=== PATIENT | male | born 1940 | race Caucasian/White ===

== ENCOUNTER 2023-06-15 13:37 | Emergency (ER) | payer MEDICARE, SELFPAY ==
[2023-06-15 13:52] VITALS: BP 135/72; PULSE 76; RESP 16; TEMP 36.9; O2SAT 98
--- NOTE | 2023-06-15 14:57 | ED.GENADULT ---
HPI - General Adult General Chief complaint: Wound/Laceration Stated complaint: Right arm tore skin off Source: patient Mode of arrival: ambulatory Limitations: no limitations History of Present Illness HPI narrative: Patient presents for evaluation of skin tears to the right forearm. 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 It fell and caused several skin tears to right forearm in the process. Reports some minor amount of pain in the affected area. Areas are covered in a bandage and bleeding is controlled. He is anticoagulated with xarelto. Last tetanus was 8 years ago. He is not diabetic. No additional complaints. Related Data Home Medications Medication Instructions Recorded Confirmed atorvastatin 40 mg tablet 40 mg PO DAILY 12/22/19 05/15/23 finasteride 5 mg tablet 5 mg PO DAILY 12/22/19 05/15/23 pantoprazole 40 mg tablet,delayed 40 mg PO QAM 12/22/19 05/15/23 release rivaroxaban 20 mg tablet (Xarelto) 20 mg PO DAILY 12/22/19 05/15/23 sertraline 100 mg tablet 100 mg PO DAILY 12/22/19 05/15/23 tamsulosin 0.4 mg capsule 0.4 mg PO DAILY 12/22/19 05/15/23 cholecalciferol (vitamin D3) 10 10 mcg PO DAILY 05/12/23 05/15/23 mcg (400 unit) capsule cholestyramine (with sugar) 4 gram ea PO 05/12/23 05/15/23 oral powder Allergies Allergy/AdvReac Type Severity Reaction Status Date / Time Penicillins Allergy Unknown Unknown Verified 05/12/23 09:25 Review of Systems Review of Systems: CONSTITUTIONAL: Denies fever, chills, or sweats. EYES: Denies visual changes, redness, or discharge. ENT: Denies rhinorrhea, congestion, sore throat, or otalgia. CARDIOVASCULAR: Denies chest pain, palpitations, or edema. RESPIRATORY: Denies cough or dyspnea. GASTROINTESTINAL: Denies abdominal pain, nausea, vomiting, or diarrhea. GENITOURINARY: Denies dysuria or hematuria. SKIN: Reports skin tears to the right MUSCULOSKELETAL: Denies back pain, joint pain, or myalgia. NEUROLOGIC: Denies headache, numbness, dizziness, or weakness. PSYCHIATRIC: Denies anxiety or depression. [facility] Past Medical History Medical History A-fib Depression History of TIA (transient ischemic attack) Hyperlipidemia Hypertension Mild acid reflux Rotator cuff arthropathy of left shoulder Rotator cuff tear, left Surgical History Surgical History History of appendectomy (~2010) History of back surgery (~1967) History of back surgery (~1972) History of cholecystectomy (~2009) History of elbow surgery (~2004) History of foot surgery (~2019) History of hemorrhoidectomy (~1989) History of knee replacement (~2017) History of left knee surgery (~1984) History of prostate surgery (~2004) History of right knee surgery (~1990) History of rotator cuff surgery (~1999) History of sinus surgery (~1995) History of sinus surgery (~2000) History of thumb surgery (~2018) S/P left rotator cuff repair (~2005) Status post biventricular cardiac pacemaker insertion (~11/2014) Family History Family History Other Family history of arthritis Social History Social History Smoking status: Never smoker Alcohol intake: current Exam Narrative: GENERAL: Well-appearing, well-nourished, and in no acute distress. HEAD: Normocephalic, atraumatic. EYES: PERRLA and EOMI. ENT: Nares clear, no rhinorrhea or epistaxis. Mucous membranes moist. Oropharynx without tonsillar hypertrophy exudate or other lesions. Bilateral TMs pearly valdez nonbulging NECK: Supple. No adenopathy or masses. No carotid bruits or JVD CHEST: Clear to auscultation. No respiratory distress. No wheezes rales or rhonchi HEART: Regular rate and rhythm. No murmur heard. Normal peripheral pulses. ABDOMEN: Soft, nontender, nondiste
[2023-06-15] MEDS: TETANUS,DIPHTHERIA,AC PERTUSSIS ADULT (0.5 ML) BOOSTRIX IM (15:03)
== END 2023-06-15 15:17 | disposition home or self-care (01) ==
PROVIDERS: Emergency Provider Nurse Practitioner; PCP Internal Medicine
DX: S51.811A Laceration without foreign body of right forearm, initial encounter (principal); I48.91 Unspecified atrial fibrillation; E78.5 Hyperlipidemia, unspecified; I10 Essential (primary) hypertension; Z23 Encounter for immunization; Z86.73 Personal history of transient ischemic attack (TIA), and cerebral infarction without residual deficits; W31.2XXA Contact with powered woodworking and forming machines, initial encounter
CPT/HCPCS: 90471; 90715; 99213; G0463

== ENCOUNTER 2024-03-19 10:59 | Outpatient (CLI) | payer MEDICARE, SELFPAY ==
--- NOTE | ~2024-03-19 | XR_ITS ---
Right Knee Technique: AP, lateral, and sunrise views were obtained. Clinical History: Pain Findings: No fracture or dislocation is seen. There is mild degenerative change of the medial compart ment, medial joint line spurring and probable mild medial compartment narrowing. There is minimal spu rring, notch and patella, and lateral joint line.. Soft tissues are unremarkable. No joint effusion i s seen. Impression: Degenerative changes, as above, worst in the medial compartment. Reviewed, dictated and finalized at location M. Impression: Degenerative changes, as above, worst in the medial compartment.
== END 2024-03-19 11:00 | disposition home or self-care (01) ==
LOC: ANHIMG 11:00
PROVIDERS: PCP Internal Medicine; Visit Provider Orthopaedic Surgery
DX: M25.561 Pain in right knee (principal)
CPT/HCPCS: 73564

== ENCOUNTER 2024-03-30 11:28 | Outpatient (CLI) | payer MEDICARE, SELFPAY ==
--- NOTE | 2024-03-30 11:50 | ECG_ITS ---
Test Date: 2024-03-30 11:56:45 Measurements Intervals [place] Rate: 78 P: 0 OK: 0 QRS: 93 QRSD: 142 T: -17 QT: 387 QTc: 443 Interpretive Statements ATRIAL FIBRILLATION WITH INTERMITTENT VENTRICULAR PACED COMPLEXES RIGHT BUNDLE BRANCH BLOCK [120+ ms QRS DURATION, UPRIGHT V1, 40+ ms S IN I/aVL/V4/V5/V6] No previous ECG available for comparison Electronically Signed On 03-30-2024 13:41:18 CDT by Guerline Hooker M.D.
[2024-03-30 12:58] LABS: Hematocrit 41.6 % (42.0-52.0); Hemoglobin 13.4 g/dL (14.0-18.0)
[2024-03-30 13:15] LABS: Albumin Level 4.4 g/dL (3.5-5.1); Estimated Glomerular Filt Rate > 60; Glucose 100 mg/dL (65-110)
[2024-03-30 13:38] LABS: Urine Cotinine NEGATIVE
== END 2024-03-30 11:29 | disposition home or self-care (01) ==
LOC: ANHCARD 11:37
PROVIDERS: PCP Internal Medicine; Visit Provider Orthopaedic Surgery
DX: Z01.818 Encounter for other preprocedural examination (principal); M17.11 Unilateral primary osteoarthritis, right knee; E78.5 Hyperlipidemia, unspecified; I10 Essential (primary) hypertension; Z79.899 Other long term (current) drug therapy
CPT/HCPCS: 80307; 82040; 82565; 82947; 85014; 85018; 93005

== ENCOUNTER 2024-05-03 09:28 | Outpatient (CLI) | payer MEDICARE, SELFPAY ==
[2024-05-03 11:09] LABS: Basophils Percent Auto 0.6 % (0.2-1.2); Eosinophils Absolute Auto 0.1 K/mm3 (0-0.3); Eosinophils Percent Auto 1.7 % (0-4.4); Hematocrit 37.3 % (42.0-52.0); Immature Granulocyte Absolute 0.01 K/mm3 (0.00-0.031); Immature Granulocyte Percent A 0.2 % (0-0.5); Lymphocytes Absolute Auto 1.96 K/mm3 (0.9-3.2); Lymphocytes Percent Auto 29.9 % (18.3-44.2); Mean Corpuscular HGB Conc 32.2 g/dl (32-36); Mean Corpuscular Hemoglobin 27.8 pg (26-34); Mean Corpuscular Volume 86.3 fl (80-100); Mean Platelet Volume 9.7 fl (7.4-10.4); Monocytes Absolute Auto 0.5 K/mm3 (0.1-0.6); Monocytes Percent Auto 7.6 % (2.6-8.5); Neutrophils Absolute Auto 3.9 K/mm3 (1.3-6.7); Platelet Count Result 178 k/mm3 (150-375); Red Blood Count 4.32 M/mm3 (4.6-6.20); Red Cell Distribution Width 13.8 % (11.5-14.5); White Blood Count 6.6 K/mm3 (4.5-10.0)
[2024-05-03 11:58] LABS: Hemoglobin A1C 6.1 % (<5.7)
[2024-05-03 12:24] LABS: MRSA (PCR) NOT DETECTED (NOT DETECTE)
== END 2024-05-03 09:29 | disposition home or self-care (01) ==
PROVIDERS: PCP Hospitalist; Visit Provider Orthopaedic Surgery
DX: Z01.818 Encounter for other preprocedural examination (principal); M17.11 Unilateral primary osteoarthritis, right knee
CPT/HCPCS: 36415; 83036; 85025; 87641

== ENCOUNTER 2024-05-31 00:21 | Day surgery (SDC) | payer MEDICARE, SELFPAY ==
--- NOTE | 2024-05-03 09:41 | PC.NURSE ---
Report to the Outpatient Waiting Room, entrance under the green pavilion located off [facility], at time _10:00am on date ___05/31/24 ____. Planned Procedure Time: _12:00pm . Time changes happen often and if your time is changed the preop area will call you the afternoon before. - You and your visitor will be asked to self-screen and do not enter if you have any COVID symptoms. - A mask is optional within the hospital at this time. Patients may have clear liquids (water, carbonated beverages, clear teas, apple juice) until 3 hours prior to surgery (0900am) with a maximum of 20 ounces. - No food from midnight until time of surgery - Infants may have breast milk until 4 hours before surgery, infant formula 6 hours prior to surgery. Take the following medications with a SIP of water the morning of surgery: Sertraline per Anesthesia DO NOT STOP ANY OF YOUR OTHER PRESCRIPTION MEDICATIONS PRIOR TO SURGERY ?EXCEPT THE FOLLOWING Medications to discontinue per physician Patient states to HOLD Xarelto 3 days prior to surgery, per Dr Hammond - last dose 05/27/24 Hold all vitamins and supplement for 3 days prior to Surgery per Anesthesia. Date to take last dose 05/27/24 Please no make-up, nail ugandan, hairspray, perfume, deodorant, or body powder the day of surgery. No jewelry (including any body piercings) or valuables the day of surgery, leave them at home. Please take a shower or bath the night before, or the morning of, surgery with an antibacterial soap. Wear comfortable, loose fitting clothing. - Jewelry must be removed prior to entering the operating room. Rings and piercings that are not removed may be cut off. - The hospital will not accept responsibility for valuables. - Please leave all valuables, including medications, at home the day of surgery. If you are going home after surgery, a licensed racing car driver must drive you home. - NO public transportation without another adult if you receive anesthesia. - We recommend that an adult stay with you for 24 hours following discharge. - We also recommend that you do not drive, make important decision, drink alcoholic beverages, or take any drugs that were not prescribed by your health care provider for at least 24 hours after your discharge time. Follow any additional instructions given to you from your surgeon. If you or anyone in your household have experienced Covid symptoms in the past week, please notify your surgeon or the nurse liaison at the phone number below for possible testing. Telephone instructions given to __patient & sister and asked if any additional questions and then verbalized understanding. Patient advised to call surgeon office or pre surgery nurse liaison [phone] if any additional questions.
[2024-05-03 09:50] VITALS: BP 103/66; PULSE 70; RESP 16; TEMP 36.8; O2SAT 98; BMI 25.0
[2024-05-31] VITALS (14 sets, daily range): BP systolic 106–148; BP diastolic 57–79; PULSE 74–135; RESP 12–16; TEMP 35.8–36.8; O2SAT 92–99
--- NOTE | ~2024-05-31 | XR_ITS ---
EXAMINATION: [id number] DATE: 05/31/2024 15:35 CDT INDICATION: Right total knee arthroplasty TECHNIQUE: 2 views right knee FINDINGS: There is a right total knee arthroplasty in expected position. Subcutaneous gas with fluid and air in the joint are consistent with recent surgery. No evidence of periprosthetic fracture. IMPRESSION: 1. Recent right total knee arthroplasty. Reviewed, dictated and finalized at location B.
[2024-05-31] MEDS: TRANEXAMIC ACID 1,000MG/ISO100 1,000 MG/100 ML BAG 200 MG IVPB (10:45)
[2024-05-31] MEDS: ACETAMINOPHEN 500 MG TABLET 1000 MG PO (10:45)
[2024-05-31] MEDS: LACTATED RINGERS 1,000 ML 30 ML IV CONT ×2 (10:45→14:43)
--- NOTE | 2024-05-31 10:58 | WPDHPUPDATE1 ---
History and Physical Update Update Date/Time: 05/31/24 10:58 History and Physical has been reviewed, including an updated exam of the patient. Superficial abrasion at the lateral knee joint. No erythema. Okay to proceed with surgery. Postoperative wound care with triple antibiotic ointment discussed with the patient and his sister. Risks, benefits, and alternatives have been discussed and questions answered. Patient agrees to proceed with procedure.
--- NOTE | 2024-05-31 11:54 | WPDANESEPPF ---
Anes - Initial Pre Proc Eval Procedure: Operation Date: 05/31/24 12:00 Proposed Procedures p Right Total Knee Arthroplasty - Shekhar Hammond MD Date/Time: 05/31/24 11:54 Surgeon: Shekhar Hammond MD Pre Op Diagnosis: primary OA right knee Patient Data Age: 83 Gender: M Height: 1.85 m Weight: 87.8 kg Last Vital Signs Temp 97 F L 05/31/24 10:45 Pulse 79 05/31/24 10:45 Resp 14 05/31/24 10:45 BP 114/61 05/31/24 10:45 Pulse Ox 98 05/31/24 10:45 O2 Del Method Room Air 05/31/24 10:45 Allergies Allergy/AdvReac Type Severity Reaction Status Date / Time Penicillins Allergy Intermediate rash, hives Verified 05/31/24 11:11 Home Medications Medication Instructions Recorded Confirmed Type atorvastatin 40 mg tablet 40 mg PO DAILY 12/22/19 05/03/24 History finasteride 5 mg tablet 5 mg PO DAILY 12/22/19 05/03/24 History pantoprazole 40 mg tablet,delayed 40 mg PO QAM 12/22/19 05/03/24 History release rivaroxaban 20 mg tablet (Xarelto) 20 mg PO DAILY 12/22/19 05/31/24 History sertraline 100 mg tablet 100 mg PO DAILY 12/22/19 05/03/24 History tamsulosin 0.4 mg capsule 0.4 mg PO DAILY 12/22/19 05/03/24 History cholecalciferol (vitamin D3) 10 10 mcg PO DAILY 05/12/23 05/31/24 History mcg (400 unit) capsule hydrocodone 5 mg-acetaminophen 325 1 tablet PO PRN PRN Pain 05/03/24 05/03/24 History mg tablet Laboratory Tests 05/31/24 10:26 Blood Type B Positive Antibody Screen Negative Patient hx anesthesia problems: none Family hx anesthesia problems: none Results Review: All pre-operative results and documents have been reviewed as part of the pre-operative evaluation. COUNTS INCLUDE 234 BEDS AT THE [facility] Past Medical History Medical History A-fib Depression History of TIA (transient ischemic attack) Hyperlipidemia Hypertension Mild acid reflux Rotator cuff arthropathy of left shoulder Rotator cuff tear, left Surgical History Surgical History History of appendectomy (~2010) History of back surgery (~1967) History of back surgery (~1972) History of cholecystectomy (~2009) History of elbow surgery (~2004) History of foot surgery (~2019) History of hemorrhoidectomy (~1989) History of knee replacement (~2017) History of left knee surgery (~1984) History of prostate surgery (~2004) History of right knee surgery (~1990) History of rotator cuff surgery (~1999) History of sinus surgery (~1995) History of sinus surgery (~2000) History of thumb surgery (~2018) S/P left rotator cuff repair (~2005) Status post biventricular cardiac pacemaker insertion (~11/2014) Family History Family History Other Family history of arthritis Social History Social History Smoking packs per day: 1.5 Smoking cigarettes per day: 30.0 Years smoked: 30 Smoking pack-years: 45.00 Smoking status: Former smoker Tobacco type: cigarettes Smoking end date: 02/03/03 Additional smoking assessment comments: Denies any form of tobacco use Alcohol intake: current Drinks per week: 6 Do You Feel Safe in your Home?: Yes Lack of Transportation: No Lack of Food: Never True Current Housing: I Have Housing Concerned About Future Housing: No Difficulty Paying Gas/Electric Bills: No Difficulty Paying for Meds: No Currently Unemployed: YES Education: High School Diploma/GED Difficulty w/ Childcare or Family Care: No Living arrangements: alone Spiritual care concerns: No Anes - Eval Final PreProcedure Day of Procedure 05/31/24 11:54 Patient weight: overweight Heart: regular rate and rhythm and irregular rhythm Lungs: clear to auscultation Airway: Mallampati scale class II and special considerations (Missing several upper teeth. )
[2024-05-31] MEDS: ceFAZolin 2 GM/D5W 50 ML 2 GM/50 ML BAG IVPB ×2 (12:11→22:10)
--- NOTE | 2024-05-31 12:11 | WPDANESPNB ---
Anes - Peripheral Nerve Block Date/Time: 05/31/24 12:11 I have discussed with the patient/family/POA the placement of a peripheral nerve block for post-operative pain management, including associated risks, benefits, complications, and side effects. Alternative methods of post-operative analgesia were detailed. Questions were solicited and answers provided to the satisfaction of the patient/family/POA. Time-Out: A pre-procedural Time-Out was completed immediately before starting the procedure and confirmed: Patient Identification, Site, Procedure, Patient Position and the Availability of Requisite Equipment. Clinical Indications: Acute post-operative pain management requested by the operative surgeon. Nerve Block Insertion Note Anes-nerve block: adductor canal right Patient position: supine Skin prep: chlorhexidine Needle: 22 gauge, stimulating, insulated echogenic needle. Needle length: 80 mm Technique: ultrasound Injectate: other (Bupiv 0.5%, 15 mls. ) Observations: tolerated well Complications: none Procedure start time:: 1155 Procedure end time:: 1199
[2024-05-31] MEDS: SODIUM CHLORIDE 0.9% IV 37.7 ML, MORPHINE SULFATE INJ (*CRX) 2 MG, ROPivacaine HCL 1% 2... INFILTRATE (13:59)
--- NOTE | 2024-05-31 14:55 | SUR.PHASEI ---
Oral airway and nasal airway removed by Dr. Nelson in PACU.
[2024-05-31] MEDS: METOPROLOL TARTRATE INJ 5 MG/5 ML VIAL 2.5 MG IV PUSH (15:07)
--- NOTE | 2024-05-31 15:18 | W.PM.PROC2 ---
Procedure Note - Detailed Date of Procedure 06/01/24 Pre-op Diagnosis primary OA right knee Post-op Diagnosis Same Procedure Performed Calipered, kinematically aligned total knee replacement right knee. Surgeon Shekhar Hammond MD Wire Coating Operator [employer] Tila Reeves PA-C Anesthesia General Indications Severe degenerative arthritis of the knee. Failed conservative treatment. Findings According to the calipered kinematic alignment principles, the knee was balanced by the following verification checks incorporating 6 caliper measurements, using an insert goniometer to select the insert thickness, and adjusting the tibial resection following the kinematic alignment algorithm (see figure 160.10 published in [employer] chapter on kinematic alignment total knee arthroplasty.) The steps verified the femoral and tibial components were kinematically aligned coincident to the patient's pre arthritic joint lines, which closely restored the yurok tibial compartment forces and ligament laxities without ligament release. The [employer] SperiKA knee, designed specifically for kinematic alignment, fit optimally. The record of verification checks were documented and scanned into the chart. Distal Femoral Resection: Distal Medial 6 mm(cartilage worn), Distal Lateral 8 mm Target thickness of 8mm Unworn, 6mm Worn (No Cartilage). Posterior Femoral Resection: Posterior Medial 5 mm(cartilage worn), Posterior Lateral 7 mm. Target thickness of 7mm Unworn, 5mm Worn (No Cartilage). Tibia varus preoperative 6 degrees. Tibia slope preoperative 5 degrees. Description of Procedure General anesthesia was administered. A well-padded tourniquet was placed high on the thigh. The limb was prepped and draped in the usual sterile fashion. The limb was exsanguinated and the tourniquet inflated to 300 mmHg. A longitudinal incision was created over the midline of the knee. Sharp dissection was taken through subcutaneous tissues. Electrocautery was used for hemostasis. A trivector approach to the knee joint was performed. The ACL, anterior horns of the menisci, and fat pad were excised, and a subperiosteal dissection was carried along the posterior medial border of the tibia. The thickness of the yurok patella was measured with a caliper. The patella was resected using the oscillating saw. The best fitting anatomic patella button was selected. The fixation holes were drilled. When the patella and patella buttons combined thickness was thicker than the yurok patella, the patella was recut. Starting midway between the top of the notch in the anterior femoral cortex, I drilled a 9 mm diameter hole parallel to the anterior cortex to minimize flexion of the femoral component and promote patella tracking. I verified the existence of a 5-10 mm bone bridge between the posterior aspect of the hole and the anterior limit of the intercondylar notch. An intraosseous positioning joey was inserted 10 cm into the femur perpendicular to the distal joint line and parallel to the anterior cortex. I used a distal femoral referencing guide that compensated 2 mm when the cartilage was worn on the distal medial femoral condyle, and 2 mm when the cartilage was worn on the distal lateral femoral condyle. The basis for setting the distal and posterior femoral resection guide is knowing that the varus and valgus grade II to IV Kellegren-Terrance osteoarthritic knees have negligible bone wear at 0? and 90? and that the mean full-thickness cartilage wear approximates 2 mm. I measured the thickness of distal femoral resections with a caliper to +/- 0.5 mm. The thickness of each resection was adjusted to match the thickness of the respective condyle of the femoral component within 0.5 mm of target after compensating for cartilage wear and kerf. When the distal resection was 1-2 mm too thin, a recut guide was used to adjust the cut. When the distal resection was too thick, a 1 or 2 mm thick washer was fi
--- NOTE | 2024-05-31 15:55 | PC.NURSE ---
This patient, Giovanni Vargas, was admitted to [facility] Surg Room 331-01. Patient/family oriented to hospital policies and general routines including ID bracelet, bed and alarms, visiting hours, pain management, procedures, bathroom and other care routines, personal items, smoking policy, room service/diet, and visiting hours. Information on how to activate the Rapid Response Team has been discussed. Patient/Family are encouraged to report perceived risks to care and to ask questions if they do not understand what they are told or what they should do.
[2024-05-31] MEDS: SODIUM CHLORIDE 0.9% IV 1,000 ML 125 ML IV CONT (16:53)
[2024-05-31] MEDS: SENNA/DOCUSATE SODIUM TABLET 2 TAB PO (21:29)
[2024-05-31] MEDS: ASPIRIN 81 MG ENTERIC TABLET PO (21:29)
[2024-05-31] MEDS: ACETAMINOPHEN 325 MG TABLET 650 MG PO (23:18)
[2024-06-01] MEDS: HYDROmorphone HCL INJ (*CRX) 1 MG/ML SYR 0.5 MG IV PUSH (03:00)
[2024-06-01 03:08] VITALS: BP 135/60; PULSE 73; RESP 16; TEMP 36.5; O2SAT 96
[2024-06-01] MEDS: ceFAZolin 2 GM/D5W 50 ML 2 GM/50 ML BAG IVPB ×2 (03:09→11:52)
[2024-06-01] MEDS: ACETAMINOPHEN 325 MG TABLET 650 MG PO ×2 (05:08→11:51)
[2024-06-01 08:00] VITALS: BP 139/76; PULSE 75; RESP 18; TEMP 36.1; O2SAT 98
[2024-06-01 08:47] LABS: Basophils Absolute Auto 0.1 K/mm3 (0.0-0.1); Basophils Percent Auto 0.4 % (0.2-1.2); Hematocrit 38.7 % (42.0-52.0); Hemoglobin 11.3 g/dL (14.0-18.0); Immature Granulocyte Absolute 0.06 K/mm3 (0.00-0.031); Immature Granulocyte Percent A 0.4 % (0-0.5); Lymphocytes Absolute Auto 1.12 K/mm3 (0.9-3.2); Lymphocytes Percent Auto 8.2 % (18.3-44.2); Mean Corpuscular HGB Conc 29.2 g/dl (32-36); Mean Corpuscular Hemoglobin 27.4 pg (26-34); Mean Corpuscular Volume 93.9 fl (80-100); Monocytes Percent Auto 7.5 % (2.6-8.5); Neutrophils Absolute Auto 11.4 K/mm3 (1.3-6.7); Neutrophils Percent Auto 83.5 % (45.5-73.1); Platelet Count Result 185 k/mm3 (150-375); Red Blood Count 4.12 M/mm3 (4.6-6.20); Red Cell Distribution Width 13.7 % (11.5-14.5); White Blood Count 13.7 K/mm3 (4.5-10.0)
[2024-06-01 08:57] LABS: Anion Gap 10 mmol/L (4-12); Blood Urea Nitrogen 16 mg/dL (9-20); Calcium 8.2 mg/dL (8.4-10.2); Carbon Dioxide 24 mmol/L (22-30); Chloride 101 mmol/L (98-107); Estimated CRCL calculation 81 ml/min; Estimated Glomerular Filt Rate > 60; Glucose 107 mg/dL (65-110); Potassium 4.2 mmol/L (3.4-5.0); Sodium 135 mmol/L (137-145)
[2024-06-01] MEDS: PANTOPRAZOLE 40 MG TABLET PO (09:12)
[2024-06-01] MEDS: ASPIRIN 81 MG ENTERIC TABLET PO (09:12)
[2024-06-01] MEDS: ATORVASTATIN 40 MG TABLET PO (09:12)
[2024-06-01] MEDS: SERTRALINE HCL 50 MG TABLET 100 MG PO (09:12)
[2024-06-01] MEDS: CHOLECALCIFEROL 400 UNITS TABLET (VIT D) PO (09:12)
[2024-06-01] MEDS: SENNA/DOCUSATE SODIUM TABLET 2 TAB PO (09:13)
[2024-06-01] MEDS: TAMSULOSIN HCL 0.4 MG CAPSULE PO (09:13)
[2024-06-01] MEDS: FINASTERIDE 5 MG TABLET PO (09:13)
--- NOTE | 2024-06-01 10:09 | PM.DS ---
DS: Admitting Diagnosis Discharge Date 06/01/24 Admitting Diagnosis Knee arthritis DS: Discharge Diagnosis Discharge Diagnosis (1) Status post total right knee replacement: Code(s): Z96.651 - Presence of right artificial knee joint Status: Acute Assessment and Plan: Postop day 1: Right total knee arthroplasty. Patient tolerated procedure well. No complications. Pain manageable with pain medication. No numbness or tingling. We had a lengthy discussion regarding postoperative wound care, limitations, expectations, and exercises. Patient shows good understanding. He has had initial physical therapy and is tolerating it well. DVT prophylaxis: 81 mg baby aspirin b.i.d. for 14 days. Pain medication: Percocet. Patient has followup appointment with Dr. Hammond in 3 weeks. DS: Summary Hospital Course Reason for hospitalization: Total knee arthroplasty Hospital Course: Patient tolerated procedure well. Has had initial PT/OT. Status at Discharge Functional status at discharge: uses cane/walker Overall status at discharge: patient is progressing back to baseline Time Spent with Patient Time attestation: Total time spent providing and/or coordinating discharge services: Exam Narrative: 83-year-old normal weight male. Resting comfortably in bed Alert and oriented x3. No acute distress. Wearing compression socks bilaterally. Dressing intact without drainage on Mepilex. Mild swelling. No ecchymosis. No erythema. No hematoma. Range of motion limited due to pain. 10-90 degrees. Fires calf. Calf nontender. Neurologic status intact. No varicosities. Distal pulses palpable. DS: Data Data Completed and Pending Labs on day of discharge: Labs from last 24 hours 06/01/24 05/31/24 07:20 10:26 WBC Pending RBC Pending Hgb Pending Hct Pending MCV Pending MCH Pending MCHC Pending RDW Pending Plt Count Pending MPV Pending Immature Gran % (Auto) Pending Neut % (Auto) Pending Lymph % (Auto) Pending [place] % (Auto) Pending Eos % (Auto) Pending Baso % (Auto) Pending Lymph # (Auto) Pending [place] # (Auto) Pending Eos # (Auto) Pending Baso # (Auto) Pending Abs Immat Gran (auto) Pending Absolute Neuts (auto) Pending Absolute Nucleated RBC Pending Nucleated RBC % Pending Sodium 135 L Potassium 4.2 Chloride 101 Carbon Dioxide 24 Anion Gap 10 BUN 16 Creatinine 0.70 Estim Creat Clear Calc 81 Estimated GFR > 60 Glucose 107 Calcium 8.2 L Blood Type B Positive Antibody Screen Negative Discharge Plan Discharge Patient Disposition: Home, Self-Care Discharge Instructions: See green instruction sheets Stand Alone Forms: General Discharge Instructions Follow-up/Referrals: Tila Reeves PA [Physician Life Coach] - Discharge Medications: New aspirin 81 mg tablet,delayed release (DR/EC) 81 mg PO BID 7 Days Qty: 14 0RF oxycodone-acetaminophen 5-325 mg tablet 1 - 2 tablet PO Q4-6H MDD 6 PRN (Reason: pain) Qty: 30 0RF Continued sertraline 100 mg tablet 100 mg PO DAILY pantoprazole 40 mg tablet,delayed release (DR/EC) 40 mg PO QAM finasteride 5 mg tablet 5 mg PO DAILY atorvastatin 40 mg tablet 40 mg PO DAILY tamsulosin 0.4 mg capsule 0.4 mg PO DAILY cholecalciferol (vitamin D3) 10 mcg (400 unit) capsule 10 mcg PO DAILY Held Xarelto 20 mg tablet 20 mg PO DAILY Hold Instructions: Resume on 06/07/24. Hold for 1 week after surgery. Patient Comments: takes in am Rx Instructions: must administer with evening meal hydrocodone-acetaminophen 5-325 mg tablet 1 tablet PO PRN PRN (Reason: Pain) Hold Instructions: Resume on 06/21/24. Hold while taking Oxycodone.
[2024-06-01] MEDS: oxyCODONE/ACETAMINOPHEN (*CRX) 10-325 MG TABLET 1 TAB PO (10:42)
[2024-06-01 12:00] VITALS: BP 156/81; PULSE 74; RESP 18; TEMP 36.1; O2SAT 94
--- NOTE | 2024-06-01 14:07 | P.PNAN_ITS ---
Anes - Prog Note Post-Op Date/Time: 06/01/24 14:07 Vital Signs: Last Vital Signs Temp 36.1 C L 06/01/24 12:00 Pulse 74 06/01/24 12:00 Resp 18 06/01/24 12:00 BP 156/81 H 06/01/24 12:00 Pulse Ox 94 06/01/24 12:00 O2 Del Method Room Air 06/01/24 07:47 O2 Flow Rate 1 05/31/24 20:00 Pain Score (VAS): 0 I/O: Intake & Output 05/31/24 06/01/24 06/01/24 23:59 07:59 15:59 Intake Total 170 600 354 Output Total 650 700 700 Balance -480 -100 -346 Laboratory Tests 06/01/24 07:20 06/01/24 07:20 06/01/24 07:20 WBC 13.7 H RBC 4.12 L Hgb 11.3 L Hct 38.7 L MCV 93.9 MCH 27.4 MCHC 29.2 L RDW 13.7 Plt Count 185 MPV 10.0 Immature Gran % (Auto) 0.4 Neut % (Auto) 83.5 H Lymph % (Auto) 8.2 L [place] % (Auto) 7.5 Eos % (Auto) 0.0 Baso % (Auto) 0.4 Lymph # (Auto) 1.12 [place] # (Auto) 1.0 H Eos # (Auto) 0.0 Baso # (Auto) 0.1 Abs Immat Gran (auto) 0.06 H Absolute Neuts (auto) 11.4 H Absolute Nucleated RBC 0.000 Nucleated RBC % 0.0 Sodium 135 L Potassium 4.2 Chloride 101 Carbon Dioxide 24 Anion Gap 10 BUN 16 Creatinine 0.70 Estim Creat Clear Calc 81 Estimated GFR > 60 Glucose 107 Calcium 8.2 L Patient Feedback: Patient satisfied with anesthetic care.
== END 2024-06-01 13:40 | disposition home or self-care (01) ==
LOC: ANHSURGERY 09:49 → ANH3MEDSUR 15:53
PROVIDERS: Physician Assistant Surgical; PCP Hospitalist; Visit Provider Orthopaedic Surgery
PROC: (CPT 27447; principal; 2024-05-31 12:00)
DX: M17.11 Unilateral primary osteoarthritis, right knee (principal); Z87.891 Personal history of nicotine dependence; I48.91 Unspecified atrial fibrillation; F32.A Depression, unspecified; E78.5 Hyperlipidemia, unspecified; I10 Essential (primary) hypertension; Z95.0 Presence of cardiac pacemaker; Z96.659 Presence of unspecified artificial knee joint
CPT/HCPCS: 27447; 36415; 73560; 80048; 85025; 86850; 86900; 86901; 97110; 97161; 97165; C1776; A9270; C1713; J0171; J0690; J1100; J1170; J1885; J2270; J2371; J2405; J2704; J2795; J3010; J7030; J7120

== ENCOUNTER 2024-07-19 08:23 | Outpatient (CLI) | payer MEDICARE, SELFPAY ==
--- NOTE | ~2024-07-19 | XR_ITS ---
XR knee RT 3V Ordering provider: Shekhar Hammond MD History: . Z47.1 - Aftercare following joint replacement surgery . Comparison: March 19, 2024 FINDINGS: BONES: No acute fracture or dislocation. JOINT SPACES: Total knee arthroplasty. SOFT TISSUES: Normal. IMPRESSION: No acute osseous abnormality right knee. Total knee arthroplasty. Reviewed, dictated and finalized at location A.
== END 2024-07-19 08:24 | disposition home or self-care (01) ==
PROVIDERS: PCP Hospitalist; Visit Provider Orthopaedic Surgery
DX: Z47.1 Aftercare following joint replacement surgery (principal)
CPT/HCPCS: 73562